=== PATIENT | female | born 1990 ===

== ENCOUNTER 2017-10-24 21:55 | Emergency (ER) | payer MEDICAID ==
[2017-10-24 22:41] VITALS: BP 116/75
[2017-10-24] MEDS ORDERED: TYLENOL PO ONE (22:42)
== END 2017-10-25 02:11 | disposition left against medical advice (07) ==
LOC: ED 21:55
DX: R05 Cough (principal); Z53.21 Procedure and treatment not carried out due to patient leaving prior to being seen by health care provider